=== PATIENT | male | born 1940 | race Caucasian/White ===

== ENCOUNTER 2020-03-07 09:42 | Outpatient (CLI) | payer OTHER | END 2020-03-07 23:59 | disposition home or self-care (01) | LOC: PETCFH 09:42 | DX: R91.1 Solitary pulmonary nodule (principal); J94.8 Other specified pleural conditions; K80.20 Calculus of gallbladder without cholecystitis without obstruction; K57.30 Diverticulosis of large intestine without perforation or abscess without bleeding; I70.0 Atherosclerosis of aorta; Z85.72 Personal history of non-Hodgkin lymphomas | CPT/HCPCS: 78815; A9552 ==

== ENCOUNTER 2021-02-25 08:18 | Day surgery (SDC) | payer MEDICARE ==
[~2021-02-25] VITALS: Ht 172.7 cm; Wt 66.4 kg
[2021-02-25] MEDS ORDERED: MIDAZOLAM 1 MG/ML, 5ML ONE ×2 (09:11)
[2021-02-25] MEDS ORDERED: FLUMAZENIL 0.1 MG/1 ML, 5ML ONE (09:11)
[2021-02-25] MEDS ORDERED: NALOXONE 1 MG/ML, 2ML ONE (09:11)
[2021-02-25] MEDS ORDERED: FENTANYL PF 100 MCG/2ML ONE (09:11)
[2021-02-25] MEDS ORDERED: SODIUM CHLORIDE 0.9% 1,000 ML IV SCH (09:30)
[2021-02-25 09:46] VITALS: BP 121/73
[2021-02-25] MEDS ORDERED: METOPROLOL PO (09:51)
[2021-02-25] MEDS ORDERED: ATORVASTATIN PO (09:51)
[2021-02-25] MEDS ORDERED: ASPI81TA45 PO (09:51)
== END 2021-02-25 12:55 | disposition home or self-care (01) ==
LOC: OUT 08:18
PROVIDERS: ATTEND Internal Medicine Hematology & Oncology
DX: C85.90 Non-Hodgkin lymphoma, unspecified, unspecified site (principal); C34.91 Malignant neoplasm of unspecified part of right bronchus or lung; I10 Essential (primary) hypertension; J44.9 Chronic obstructive pulmonary disease, unspecified; K21.9 Gastro-esophageal reflux disease without esophagitis; I25.2 Old myocardial infarction; F12.10 Cannabis abuse, uncomplicated; Z79.899 Other long term (current) drug therapy; Z87.891 Personal history of nicotine dependence; Z88.5 Allergy status to narcotic agent; Z99.81 Dependence on supplemental oxygen
CPT/HCPCS: 32408; 71045; 88305; 99156; 99157; J2250; J3010; J7030; 77012; J2310

== ENCOUNTER 2021-03-08 07:50 | Outpatient (CLI) | payer MEDICARE, OTHER ==
[~2021-03-08 07:50] MED LIST: ASPI81TA45 PO; ATORVASTATIN PO; METOPROLOL PO
== END 2021-03-08 23:59 | disposition home or self-care (01) ==
LOC: ROC 07:50
PROVIDERS: ATTEND Radiology Radiation Oncology
DX: C34.2 Malignant neoplasm of middle lobe, bronchus or lung (principal); C85.90 Non-Hodgkin lymphoma, unspecified, unspecified site; J44.9 Chronic obstructive pulmonary disease, unspecified; I10 Essential (primary) hypertension; K21.9 Gastro-esophageal reflux disease without esophagitis; I25.2 Old myocardial infarction; Z87.891 Personal history of nicotine dependence; Z79.899 Other long term (current) drug therapy
CPT/HCPCS: 99214; G0463

== ENCOUNTER → 2021-04-18 | Outpatient (CLI) | payer MEDICARE ==
[~2021-04-18] MED LIST changes: +OMNIPAQUE 350 MG/ML, 75ML BOTTLE ONE
[2021-04-18 15:15] LABS: ALBUMIN 3.6 g/dL (3.4-5.0); ANION GAP 4 mmol/L (5-15); CALCIUM 8.6 mg/dL (8.5-10.1); CHLORIDE 103 mmol/L (98-107)
[2021-04-18 15:18] LABS: ALANINE AMINOTRANSFERASE 42 U/L (12-78); ALKALINE PHOSPHATASE 74 U/L (45-117); BILIRUBIN,TOTAL 0.5 mg/dL (0.2-1.0); TOTAL PROTEIN 6.8 g/dL (6.4-8.2)
== END | disposition home or self-care (01) ==
LOC: RAD 14:14
PROVIDERS: ATTEND Radiology Radiation Oncology
DX: C34.2 Malignant neoplasm of middle lobe, bronchus or lung (principal); J43.9 Emphysema, unspecified; J18.9 Pneumonia, unspecified organism
CPT/HCPCS: 36415; 71275; 80053; Q9967

== ENCOUNTER → 2021-05-28 | Outpatient (CLI) | payer OTHER ==
[~2021-05-28] MED LIST changes: -OMNIPAQUE 350 MG/ML, 75ML BOTTLE ONE
== END | disposition home or self-care (01) ==
LOC: CFH 12:32
PROVIDERS: ATTEND Radiology Radiation Oncology
DX: C34.2 Malignant neoplasm of middle lobe, bronchus or lung (principal); J47.9 Bronchiectasis, uncomplicated; M48.56XA Collapsed vertebra, not elsewhere classified, lumbar region, initial encounter for fracture; R91.8 Other nonspecific abnormal finding of lung field; J98.4 Other disorders of lung
CPT/HCPCS: 71250

== ENCOUNTER → 2021-05-30 | Outpatient (CLI) | payer MEDICARE, OTHER | END | disposition home or self-care (01) | LOC: ROC 05-24 07:59 | PROVIDERS: ATTEND Radiology Radiation Oncology | DX: C34.2 Malignant neoplasm of middle lobe, bronchus or lung (principal); J43.9 Emphysema, unspecified; I10 Essential (primary) hypertension; I25.10 Atherosclerotic heart disease of native coronary artery without angina pectoris; K21.9 Gastro-esophageal reflux disease without esophagitis; Z79.899 Other long term (current) drug therapy; Z87.891 Personal history of nicotine dependence | CPT/HCPCS: 99213; G0463 ==

== ENCOUNTER 2021-06-15 18:37 | Inpatient (IN) | payer OTHER ==
[~2021-06-15] VITALS: Ht 172.7 cm; Wt 65.2 kg
[~2021-06-15 18:37] MED LIST changes: +AZIT500T10 PO
--- NOTE | 2021-06-15 19:04 | NUR ---
PT PRESENTS TO ER WITH FOR SOB, COUGH, AND FEVER SINCE THURSDAY. PTS STATES THAT PT WAS ADMITTED HERE FOR THE SAME COMPLAINTS EARLY LAST WEEK. PTS STATES HE WAS NEVER GIVEN A NEBULIZER AND PT NEEDS NEBS, PT WAS DISCHARGED WITH ORAL ABX, PT USUALLY ON 2LPM NASAL CANULA OXYGEN AT HOME
[2021-06-15] MEDS ORDERED: VANCOMYCIN PER PHARMACY MC ONE (19:30)
[2021-06-15] MEDS ORDERED: PIPERACILLIN/TAZO 3.375 GM in DEXTROSE 5% 50 ML IVPB ONE (19:30)
[2021-06-15] MEDS ORDERED: SODIUM CHLORIDE 0.9% 1,000ML IVBOLUS ONE (19:30)
[2021-06-15] MEDS ORDERED: ACETAMINOPHEN 325 MG TABLET PO ONE (19:30)
[2021-06-15] MEDS ORDERED: ACETAMINOPHEN 325 MG TABLET ONE (19:42)
[2021-06-15 19:48] LABS: BASOPHILS % (AUTO) 1 % (0-1); EOSINOPHILS % (AUTO) 3 % (1-7); LYMPHOCYTES % (AUTO) 4 % (22-44); MEAN CORPUSCULAR HEMOGLOBIN 33.1 pg (27.5-34.5); MEAN CORPUSCULAR HGB CONC 34.3 g/dL (33.2-36.2); MEAN PLATELET VOLUME 7.1 fL (7.4-10.4); MONOCYTES % (AUTO) 18 % (2-9); NEUTROPHILS % (AUTO) 74 % (42-75); PLATELET COUNT 279 x10^3/uL (130-400); RED BLOOD COUNT 3.31 x10^6/uL (4.38-5.82); RED CELL DISTRIBUTION WIDTH 16.2 % (9.4-14.8)
[2021-06-15 19:56] LABS: ALANINE AMINOTRANSFERASE 37 U/L (12-78); ALBUMIN 2.9 g/dL (3.4-5.0); ANION GAP 8 mmol/L (5-15); CALCIUM 8.4 mg/dL (8.5-10.1); CHLORIDE 99 mmol/L (98-107)
[2021-06-15] MEDS ORDERED: VANCOMYCIN 1,600 MG in SODIUM CHLORIDE 0.9% 250 ML IV ONE (20:00)
[2021-06-15 20:01] LABS: ALKALINE PHOSPHATASE 77 U/L (45-117); BILIRUBIN,TOTAL 0.5 mg/dL (0.2-1.0); CREATININE 0.99 mg/dL (0.7-1.3); TOTAL PROTEIN 6.6 g/dL (6.4-8.2); TROPONIN I < 0.015 ng/mL (0.000-0.045)
[2021-06-15] MEDS ORDERED: ALBUTEROL SULFATE 2.5 MG/3 ML ONE (20:25)
[2021-06-15] MEDS ORDERED: ALBUTEROL SULFATE 2.5 MG/3 ML NPPB ONE (20:30)
--- NOTE | 2021-06-15 20:51 | NUR ---
PT LAYING IN BED, A/OX4, AT BEDSIDE, NEBULIZER TREATMENT COMPLETED, PT REPORTS FEELING BETTER AFTER NEB, ALL NEEDS IN REACH, CALL LIGHT IN REACH, NAD AT THIS TIME
[2021-06-15 22:31] LABS: MICROSCOPIC NOT IND
[2021-06-15] MEDS ORDERED: DOCUSATE 100 MG CAPSULE PO PRN (23:30)
[2021-06-15] MEDS ORDERED: MELATONIN 5 MG TABLET PO PRN (23:30)
[2021-06-15] MEDS ORDERED: VANCOMYCIN PER PHARMACY MC PRN (23:30)
[2021-06-15] MEDS ORDERED: ACETAMINOPHEN 325 MG TABLET PO PRN (23:30)
[2021-06-16 00:15] VITALS: BP 114/65
[2021-06-16] MEDS ORDERED: PHARMACOKINETIC MONITORING MC PRN (01:00)
[2021-06-16] MEDS ORDERED: PHARMACOKINETIC CONSULTATION MC ONE (01:00)
[2021-06-16] MEDS ORDERED: ALBUTEROL HFA 90 MCG/SPRAY INH PRN (01:30)
[2021-06-16] MEDS: SODIUM CHLORIDE 0.9% 1,000 ML IV SCH ×3 (02:55→23:23)
[2021-06-16] MEDS: HEPARIN 5,000 UNITS/ML, 1ML SQ SCH ×3 (02:57→19:04)
[2021-06-16] MEDS: PIPERACILLIN/TAZO 3.375 GM in DEXTROSE 5% 50 ML IV SCH ×4 (05:01→23:23)
[2021-06-16 05:50] LABS: ANION GAP 6 mmol/L (5-15); CALCIUM 8.5 mg/dL (8.5-10.1); CHLORIDE 105 mmol/L (98-107); CREATININE 1.05 mg/dL (0.7-1.3)
[2021-06-16 05:55] LABS: BASOPHILS % (AUTO) 1 % (0-1); EOSINOPHILS % (AUTO) 6 % (1-7); LYMPHOCYTES % (AUTO) 4 % (22-44); MEAN CORPUSCULAR HEMOGLOBIN 33.3 pg (27.5-34.5); MEAN CORPUSCULAR HGB CONC 34.4 g/dL (33.2-36.2); MEAN PLATELET VOLUME 7.3 fL (7.4-10.4); MONOCYTES % (AUTO) 19 % (2-9); NEUTROPHILS % (AUTO) 70 % (42-75); PLATELET COUNT 253 x10^3/uL (130-400); RED BLOOD COUNT 3.34 x10^6/uL (4.38-5.82); RED CELL DISTRIBUTION WIDTH 16.2 % (9.4-14.8)
[2021-06-16 06:48] VITALS: BP 119/75
[2021-06-16] MEDS: DEXAMETHASONE 4 MG/ML, 1ML IVPush SCH (09:43)
[2021-06-16 13:57] VITALS: BP 110/67
[2021-06-16] MEDS: VANCOMYCIN 1,300 MG in SODIUM CHLORIDE 0.9% 250 ML IV SCH (16:46)
[2021-06-16] MEDS ORDERED: ALBUTEROL SULFATE 2.5 MG/3 ML NPPB PRN ×2 (17:00→17:30)
[2021-06-16] MEDS ORDERED: OMNIPAQUE 350 MG/ML, 100ML BOTTLE ONE (19:24)
[2021-06-16 20:00] VITALS: BP 115/69
[2021-06-17] MEDS: HEPARIN 5,000 UNITS/ML, 1ML SQ SCH ×3 (04:23→20:10)
[2021-06-17 04:28] VITALS: BP 109/69
[2021-06-17] MEDS: PIPERACILLIN/TAZO 3.375 GM in DEXTROSE 5% 50 ML IV SCH ×3 (04:59→21:31)
[2021-06-17 05:20] LABS: BASOPHILS % (AUTO) 0 % (0-1); EOSINOPHILS % (AUTO) 0 % (1-7); LYMPHOCYTES % (AUTO) 6 % (22-44); MEAN CORPUSCULAR HEMOGLOBIN 33.3 pg (27.5-34.5); MEAN CORPUSCULAR HGB CONC 34.3 g/dL (33.2-36.2); MEAN PLATELET VOLUME 7.3 fL (7.4-10.4); MONOCYTES % (AUTO) 11 % (2-9); NEUTROPHILS % (AUTO) 82 % (42-75); PLATELET COUNT 286 x10^3/uL (130-400); RED BLOOD COUNT 3.18 x10^6/uL (4.38-5.82); RED CELL DISTRIBUTION WIDTH 16.1 % (9.4-14.8)
[2021-06-17 05:30] LABS: ALBUMIN 2.4 g/dL (3.4-5.0); ANION GAP 5 mmol/L (5-15); CALCIUM 8.5 mg/dL (8.5-10.1); CHLORIDE 107 mmol/L (98-107)
[2021-06-17 06:46] VITALS: BP 120/73
[2021-06-17] MEDS: ALBUTEROL SULFATE 2.5 MG/3 ML NPPB SCH ×4 (08:11→18:56)
[2021-06-17] MEDS: DEXAMETHASONE 4 MG/ML, 1ML IVPush SCH (09:26)
[2021-06-17] MEDS: SODIUM CHLORIDE 0.9% 1,000 ML IV SCH (09:41)
[2021-06-17 14:21] VITALS: BP 136/63
[2021-06-17] MEDS: methylPREDNISolone SOD SUCC 125 MG/2 ML IVPush SCH ×2 (15:35→21:32)
[2021-06-17] MEDS: VANCOMYCIN 1,300 MG in SODIUM CHLORIDE 0.9% 250 ML IV SCH (17:04)
[2021-06-17 19:54] VITALS: BP 120/71
[2021-06-18 01:22] VITALS: BP 130/75
[2021-06-18] MEDS: SODIUM CHLORIDE 0.9% 1,000 ML IV SCH ×2 (02:08→12:34)
[2021-06-18] MEDS: methylPREDNISolone SOD SUCC 125 MG/2 ML IVPush SCH ×4 (03:02→22:02)
[2021-06-18] MEDS: PIPERACILLIN/TAZO 3.375 GM in DEXTROSE 5% 50 ML IV SCH ×4 (03:02→22:02)
[2021-06-18] MEDS: HEPARIN 5,000 UNITS/ML, 1ML SQ SCH ×3 (03:02→22:02)
[2021-06-18 03:53] LABS: BASOPHILS % (AUTO) 0 % (0-1); EOSINOPHILS % (AUTO) 0 % (1-7); LYMPHOCYTES % (AUTO) 4 % (22-44); MEAN CORPUSCULAR HEMOGLOBIN 33.3 pg (27.5-34.5); MEAN CORPUSCULAR HGB CONC 34.8 g/dL (33.2-36.2); MEAN PLATELET VOLUME 7.6 fL (7.4-10.4); MONOCYTES % (AUTO) 2 % (2-9); NEUTROPHILS % (AUTO) 95 % (42-75); PLATELET COUNT 271 x10^3/uL (130-400); RED BLOOD COUNT 3.05 x10^6/uL (4.38-5.82); RED CELL DISTRIBUTION WIDTH 16.1 % (9.4-14.8)
[2021-06-18 04:01] LABS: ALBUMIN 2.6 g/dL (3.4-5.0); CALCIUM 8.8 mg/dL (8.5-10.1); CREATININE 1.02 mg/dL (0.7-1.3)
[2021-06-18 04:16] LABS: ANION GAP 7 mmol/L (5-15); CHLORIDE 107 mmol/L (98-107)
[2021-06-18] MEDS: ALBUTEROL SULFATE 2.5 MG/3 ML NPPB SCH ×4 (07:00→19:15)
[2021-06-18 07:03] VITALS: BP 130/80
[2021-06-18 12:31] VITALS: BP 129/68
[2021-06-18] MEDS: VANCOMYCIN 1,300 MG in SODIUM CHLORIDE 0.9% 250 ML IV SCH (16:42)
[2021-06-18] MEDS: FUROSEMIDE 20 MG/2 ML IV SCH (18:19)
[2021-06-18 20:57] VITALS: BP 122/68
[2021-06-19 03:58] VITALS: BP 117/74
[2021-06-19] MEDS: methylPREDNISolone SOD SUCC 125 MG/2 ML IVPush SCH ×2 (04:02→10:33)
[2021-06-19] MEDS: PIPERACILLIN/TAZO 3.375 GM in DEXTROSE 5% 50 ML IV SCH ×2 (04:02→10:33)
[2021-06-19] MEDS: HEPARIN 5,000 UNITS/ML, 1ML SQ SCH (05:44)
[2021-06-19] MEDS: FUROSEMIDE 20 MG/2 ML IV SCH (07:55)
[2021-06-19 08:05] LABS: BASOPHILS % (AUTO) 0 % (0-1); EOSINOPHILS % (AUTO) 0 % (1-7); LYMPHOCYTES % (AUTO) 4 % (22-44); MEAN CORPUSCULAR HGB CONC 34.4 g/dL (33.2-36.2); MEAN PLATELET VOLUME 7.4 fL (7.4-10.4); MONOCYTES % (AUTO) 3 % (2-9); NEUTROPHILS % (AUTO) 93 % (42-75); PLATELET COUNT 281 x10^3/uL (130-400); RED BLOOD COUNT 2.99 x10^6/uL (4.38-5.82); RED CELL DISTRIBUTION WIDTH 16.3 % (9.4-14.8)
[2021-06-19] MEDS: ALBUTEROL SULFATE 2.5 MG/3 ML NPPB SCH ×3 (08:06→15:40)
[2021-06-19 08:14] LABS: ALBUMIN 2.5 g/dL (3.4-5.0); CALCIUM 8.8 mg/dL (8.5-10.1)
[2021-06-19 08:56] LABS: ANION GAP 7 mmol/L (5-15); CHLORIDE 103 mmol/L (98-107)
[2021-06-19 13:51] VITALS: BP 125/53
[2021-06-19] MEDS ORDERED: PRED10TA PO (15:04)
[2021-06-19] MEDS ORDERED: AMOX1TAB12 PO (15:04)
[2021-06-19] MEDS ORDERED: FURO-93 PO (15:04)
[2021-06-19] MEDS ORDERED: LISI5TAB7 PO (15:04)
[2021-06-19] MEDS ORDERED: AMOXICILLIN/CLAV 875-125MG TABLET PO SCH (21:00)
== END 2021-06-19 17:28 | disposition home or self-care (01) | DRG 871 ==
LOC: ED 19:01 → EDIP 21:27 → 4NE 22:54 → 4EST 06-18 20:23
PROVIDERS: ADMIT Family Medicine; ATTEND Internal Medicine
DX: A41.9 Sepsis, unspecified organism (principal); J15.9 Unspecified bacterial pneumonia; J96.21 Acute and chronic respiratory failure with hypoxia; I50.21 Acute systolic (congestive) heart failure; D84.9 Immunodeficiency, unspecified; C34.90 Malignant neoplasm of unspecified part of unspecified bronchus or lung; D64.9 Anemia, unspecified; Z20.822 Contact with and (suspected) exposure to COVID-19; Y95 Nosocomial condition; E78.5 Hyperlipidemia, unspecified; J43.9 Emphysema, unspecified; Z88.5 Allergy status to narcotic agent; Z87.891 Personal history of nicotine dependence; Z92.21 Personal history of antineoplastic chemotherapy; I25.2 Old myocardial infarction; Z85.72 Personal history of non-Hodgkin lymphomas; Z82.49 Family history of ischemic heart disease and other diseases of the circulatory system; Z83.3 Family history of diabetes mellitus; Z80.1 Family history of malignant neoplasm of trachea, bronchus and lung; Z80.0 Family history of malignant neoplasm of digestive organs; Z79.899 Other long term (current) drug therapy; Z68.21 Body mass index [BMI] 21.0-21.9, adult; I11.0 Hypertensive heart disease with heart failure
CPT/HCPCS: 36415; 84145; 99291; J7613; 71045; 71275; 80048; 80053; 80069; 80202; 81003; 83605; 83880; 84484; 85025; 87040; 87070; 87205; 93005; 93306; 93356; 94640; G0378; J1100; J1644; J2543; J3370; Q9967; U0005; J1940; J2930; J7030; J7050; U0003